=== PATIENT | female | born 1985 | race Hispanic/Latino ===

== ENCOUNTER 2023-03-03 06:06 | Emergency (ER) | payer OTHER ==
[~2023-03-03] VITALS: Ht 167.6 cm; Wt 129.3 kg
[2023-03-03 06:15] VITALS: BP 128/80; PULSE 69; RESP 22; O2SAT 100
[2023-03-03 06:37] LABS: RAPID GROUP A STREP negative (NEGATIVE)
[2023-03-03 06:43] LABS: SARS-CoV-2, RNA, NAAT NEGATIVE SARS CoV-2 (NEGATIVE)
[2023-03-03 06:47] LABS: INFLUENZA TYPE A Negative For Type A (NEGATIVE); INFLUENZA TYPE B Negative For Type B (NEGATIVE)
[2023-03-03] MEDS ORDERED: CLIN-141 PO (07:32)
[2023-03-03] MEDS ORDERED: FLUT16H NASAL (07:32)
[2023-03-03] MEDS ORDERED: LORA10TA7 PO (07:32)
== END 2023-03-03 08:05 | disposition home or self-care (01) ==
LOC: EDH 06:06
DX: J01.90 Acute sinusitis, unspecified (principal); Z20.822 Contact with and (suspected) exposure to COVID-19; Z88.0 Allergy status to penicillin; Z88.1 Allergy status to other antibiotic agents; Z88.8 Allergy status to other drugs, medicaments and biological substances
CPT/HCPCS: 99283; 87635; 87880; 87804 ×2; C9803